=== PATIENT | male | born 1965 | race American Indian/Alaskan Native ===

== ENCOUNTER 2021-02-25 16:08 | Emergency (ER) | payer OTHER ==
[~2021-02-25] VITALS: Ht 182.9 cm; Wt 97.5 kg
[2021-02-25 16:19] VITALS: BP 179/107
--- NOTE | 2021-02-25 16:25 | NUR ---
BIB FAMILY C/O 02/11 LEFT LOWER LEG PAIN & SWELLING X 1 WEEK.PMH: AIDS, CIRRHOSIS OF LIVER STAGE 3
[2021-02-25] MEDS ORDERED: IBUPROFEN 600 MG TAB PO ONE (17:35)
--- NOTE | 2021-02-25 17:41 | NUR ---
Patient ambulated to bed 07 with steady/even gait.
--- NOTE | 2021-02-25 17:45 | NUR ---
Pt placed into a gown. US tech at bedside
--- NOTE | 2021-02-25 18:08 | NUR ---
LACE BURN OUT TENDER AT PT BEDSIDE.
--- NOTE | 2021-02-25 18:45 | NUR ---
Patient ambulated to restroom with steady/even gait.
--- NOTE | 2021-02-25 18:50 | NUR ---
Dr. Callahan made aware patient left without discharge paperwork.
--- NOTE | 2021-02-25 18:50 | NUR ---
Patient never returned to bed from restroom. Unable to locate patient at this time.
--- NOTE | 2021-02-25 19:12 | NUR ---
PATIENT LEFT WITHOUT DISCHARGE PAPERWORK
== END 2021-02-25 19:12 | disposition home or self-care (01) ==
LOC: MED 16:08
DX: S83.92XA Sprain of unspecified site of left knee, initial encounter (principal); R60.0 Localized edema; Z86.19 Personal history of other infectious and parasitic diseases; X58.XXXA Exposure to other specified factors, initial encounter; Y93.89 Activity, other specified; Y92.89 Other specified places as the place of occurrence of the external cause; Y99.8 Other external cause status
CPT/HCPCS: 73562; 93971; 99284; Q0092

== ENCOUNTER 2023-10-15 18:36 | Emergency (ER) | payer OTHER ==
[~2023-10-15 18:36] MED LIST: DOLU50TA PO; EMTR1TAB16 PO; GABA600T12 PO; LISI5TAB18 PO
== END 2023-10-15 18:55 | disposition left against medical advice (07) ==
LOC: MED 18:36
DX: M79.673 Pain in unspecified foot (principal); Z53.21 Procedure and treatment not carried out due to patient leaving prior to being seen by health care provider

== ENCOUNTER 2023-10-15 19:56 | Emergency (ER) | payer OTHER ==
[~2023-10-15] VITALS: Ht 182.9 cm; Wt 88.5 kg
[2023-10-15 20:50] VITALS: BP 118/78; PULSE 83; RESP 20; TEMP 97.7; O2SAT 97
[2023-10-15 21:27] LABS: BASOPHILS % (AUTO) 0.8 % (0.0-2.0); EOSINOPHILS # (AUTO) 0.2 K/uL (0-0.4); EOSINOPHILS % (AUTO) 4.5 % (0.0-4.0); HEMATOCRIT 42.1 % (36-52); HEMOGLOBIN 14.7 g/dL (12.0-18.0); LYMPHOCYTES # (AUTO) 2.1 K/uL (2.0-11.5); LYMPHOCYTES % (AUTO) 39.1 % (20.5-51.1); MEAN CORPUSCULAR HEMOGLOBIN 32 pg (27-31); MEAN CORPUSCULAR HGB CONC 35 g/dL (33-37); MEAN CORPUSCULAR VOLUME 91.5 fL (80-94); MONOCYTES # (AUTO) 0.6 K/uL (0.8-1.0); MONOCYTES % (AUTO) 11.1 % (1.7-9.3); NEUTROPHILS # (AUTO) 2.4 K/uL (1.8-7.7); NEUTROPHILS % (AUTO) 44.5 % (42.2-75.2); PLATELET COUNT (AUTO) 159 K/uL (140-450); RED BLOOD CELL COUNT(AUTO) 4.61 MIL/uL (4.20-6.10); RED CELL DISTRIBUTION WIDTH 13.7 % (11.6-13.7); WHITE BLOOD COUNT (AUTO) 5.3 K/uL (4.8-10.8)
[2023-10-15 21:35] LABS: ANION GAP 11.4 (8-16); CALCIUM 8.6 mg/dL (8.5-10.1); CREATININE 1.1 mg/dL (0.6-1.3); POTASSIUM 3.4 mmol/L (3.5-5.1)
[2023-10-15 21:38] LABS: ALCOHOL, BLOOD < 3 mg/dL (<10)
[2023-10-15 21:40] LABS: ACETAMINOPHEN < 0.5 ug/ml (10-30); SALICYLATE < 2.8 mg/dL (2.8-20.0)
[2023-10-15 23:58] LABS: APPEARANCE,URINE CLEAR (CLEAR); BILIRUBIN,URINE 2+ (NEGATIVE); BLOOD, URINE NEGATIVE (NEGATIVE); COLOR,URINE YELLOW (YELLOW); LEUKOCYTE ESTERASE ,URINE NEGATIVE (NEGATIVE); NITRITE, URINE NEGATIVE (NEGATIVE); PROTEIN,URINE TRACE (NEGATIVE); UGLUCOSE TRACE (NEGATIVE)
[2023-10-16 00:03] LABS: ICTOTEST POSITIVE (NEGATIVE)
[2023-10-16 00:10] LABS: AMPHETAMINE, URINE POSITIVE ng/ml (NEG <=1000); BARBITURATE, URINE NEGATIVE ng/ml (NEG <=200); BENZODIAZEPINE, URINE NEGATIVE ng/mL (NEG <=200); CANNABINOID, URINE POSITIVE ng/mL (NEG <=50); COCAINE, URINE NEGATIVE ng/mL (NEG <=300); OPIATE, URINE NEGATIVE ng/mL (NEG <=2000); PHENCYCLIDINE SCREEN,URINE NEGATIVE ng/mL (NEG <=25)
[2023-10-16] MEDS: ACETAMINOPHEN EXTRA STRENGTH 500 MG TAB PO ONE (00:22)
[2023-10-16] MEDS ORDERED: CRUSHER, PILL MC ONE (09:14)
[2023-10-16] MEDS: ESCITALOPRAM 20 MG TAB PO SCH (09:15)
[2023-10-16 10:36] VITALS: BP 116/60; PULSE 88; RESP 14; TEMP 97.5; O2SAT 98
== END 2023-10-16 10:36 ==
LOC: MED 19:56
DX: R45.851 Suicidal ideations (principal); Z20.822 Contact with and (suspected) exposure to COVID-19; F15.10 Other stimulant abuse, uncomplicated; Z88.2 Allergy status to sulfonamides; Z79.899 Other long term (current) drug therapy
CPT/HCPCS: 36415; 80048; 80305; 81003; 85025; 87426; 99285; G0480; G0482